=== PATIENT | male | born 1960 | race Caucasian/White ===

== ENCOUNTER → 2017-01-05 | Outpatient (CLI) | payer OTHER | LOC: FIMAGING 12:53 | PROVIDERS: ATTEND Orthopaedic Surgery | DX: Z47.89 Encounter for other orthopedic aftercare (principal); S42.292D Other displaced fracture of upper end of left humerus, subsequent encounter for fracture with routine healing; M19.012 Primary osteoarthritis, left shoulder ==

== ENCOUNTER → 2017-01-26 | Outpatient (CLI) | payer OTHER | LOC: FIMAGING 16:42 | PROVIDERS: ATTEND Family Medicine | DX: M25.512 Pain in left shoulder (principal) ==

== ENCOUNTER 2017-02-21 10:49 | Inpatient (IN) | payer OTHER ==
[2017-02-21] MEDS ORDERED: ceFAZolin 2 GM/DEXTROSE 100 ML IV ONE (11:06)
[2017-02-21] MEDS ORDERED: LIDOCAINE 1% 2 ML INJ ID PRN (11:07)
[2017-02-21] MEDS ORDERED: LR 1,000 ML IV ONE (11:07)
[2017-02-21] MEDS ORDERED: BUPIVACAINE/EPI 0.5% 30 ML SDV ONE (12:27)
[2017-02-21] MEDS ORDERED: POLYMYXIN B SULFATE 500,000 UNIT/10 ML SYR IRR ONE (12:28)
[2017-02-21] MEDS ORDERED: BACITRACIN 50,000 UNITS/10 ML SYR IRR ONE (12:28)
[2017-02-21] MEDS ORDERED: MIDAZOLAM 2 MG/2 ML VIAL IVP ONE (12:44)
--- NOTE | 2017-02-21 12:44 | PDANEPAE ---
ANE History of Present Illness 57 year old male for removal of hardware from left shoulder. ANE Past Medical History - Cardiovascular History Hx Hypertension: No Hx Arrhythmias: No Hx Chest Pain: No Hx Coronary Artery / Peripheral Vascular Disease: No Hx CHF / Valvular Disease: No Hx Palpitations: No - Pulmonary History Hx COPD: No Hx Asthma/Reactive Airway Disease: No Hx Recent Upper Respiratory Infection: No Hx Oxygen in Use at Home: No Hx Sleep Apnea: No - Neurologic History Hx Cerebrovascular Accident: No Hx Seizures: No Hx Dementia: No - Endocrine History Hx Diabetes: No Hypothyroid: No Hyperthyroid: No Obesity: moderate - Renal History Hx Renal Disorders: No - Liver History Hx Hepatic Disorders: No - Neurological & Psychiatric Hx Hx Neurological and Psychiatric Disorders: No - Cancer History Hx Cancer: No - Congenital Disorder History Hx Congenital Disorders: No - Other Health History Other Health History: BRUISE EASILY - Chronic Pain History Chronic Pain: No - Surgical History Prior Surgeries: LEFT shoulder ANE Review of Systems Review of systems is: negative Review of Systems: - Exercise capacity Exercise capacity: >=4 METS METS (RN): 4 METS ANE Patient History - Allergies Allergies/Adverse Reactions: ampicillin Allergy (Verified 02/08/17 09:24) Rash Penicillins Allergy (Verified 02/08/17 09:24) Rash - Home Medications Home medications: home medication list seen and reviewed Home Medications: NK [No Known Home Meds] 02/08/17 [Last Taken Unknown] - NPO status NPO Status: no food or drink >8 hours NPO Since - Liquids (Date): 02/20/17 NPO Since - Liquids (Time): 23:55 NPO Since - Solids (Date): 02/20/17 NPO Since - Solids (Time): 22:00 - Anes Hx Anes Hx: no prior problems - Smoking Hx Smoking Status: Current every day smoker Marijuana use: No - Alcohol Use Alcohol Use: Occasionally - Family Anes Hx Family Anes Hx: neg - N/A Family Hx Anesthesia Complications: none ANE Labs/Vital Signs - Vital Signs Vital Signs: reviewed preoperatively; see RN documention for details Blood Pressure: 145/89 Heart Rate: 55 Respiratory Rate: 16 O2 Sat (%): 97 Height: 187.96 cm Weight: 127.006 kg ANE Physical Exam - Airway Neck exam: FROM Mallampati Score: Class 2 Mouth exam: poor dentition, qureshi - Pulmonary Pulmonary: no respiratory distress - Cardiovascular Cardiovascular: regular rate and rhythym - ASA Status ASA Status: I ANE Anesthesia Plan Anesthesia Plan: general endotracheal anesthesia Regional Anesthesia: supraclavicular BP NB Total IV Anesthesia: No
[2017-02-21] MEDS ORDERED: fentaNYL 100 MCG/2 ML INJ ONE ×2 (12:54→13:47)
[2017-02-21] MEDS ORDERED: ROCURONIUM 50 MG/5 ML VIAL ONE ×3 (12:54→13:34)
[2017-02-21] MEDS ORDERED: PROPOFOL 200 MG/20 ML VIAL ONE ×2 (12:54→13:16)
[2017-02-21] MEDS ORDERED: LIDOCAINE 2% 5 ML SDV ONE (12:54)
[2017-02-21] MEDS ORDERED: ONDANSETRON 4 MG/2 ML VIAL ONE (13:42)
[2017-02-21] MEDS ORDERED: DEXAMETHASONE 4 MG/ML VIAL ONE (13:42)
[2017-02-21] MEDS ORDERED: LR 500 ML IV PRN (14:19)
[2017-02-21] MEDS ORDERED: OXYCODONE/APAP 5/325 TAB PO PRN (14:19)
[2017-02-21] MEDS ORDERED: NALOXONE HCL 0.4 MG/ML INJ IVP PRN (14:19)
[2017-02-21] MEDS ORDERED: ONDANSETRON 4 MG/2 ML VIAL IVP PRN ×2 (14:19→17:44)
[2017-02-21] MEDS ORDERED: fentaNYL 100 MCG/2 ML INJ IVP PRN (14:19)
[2017-02-21] MEDS ORDERED: epHEDrine SULFATE 10 MG/ML SYR ONE (14:26)
[2017-02-21] MEDS ORDERED: PHENYLEPHRINE HCL 100 MCG/ML SYR ONE ×2 (14:26→17:02)
[2017-02-21] MEDS ORDERED: HYDROGEN PEROXIDE 236 ML BOTTLE TP ONE ×2 (14:50→14:53)
[2017-02-21] MEDS ORDERED: HYDROmorphONE/DILAUDID 2 MG/ML INJ ONE (16:31)
[2017-02-21] MEDS ORDERED: SUGAMMADEX SODIUM 200 MG/2 ML VIAL IVP ONE ×2 (16:39→17:04)
[2017-02-21] MEDS ORDERED: ONDANSETRON DISINTEGRATING 4 MG TAB PO PRN (17:44)
[2017-02-21] MEDS ORDERED: TEMAZEPAM 15 MG CAP PO PRN (17:44)
[2017-02-21] MEDS ORDERED: HYDROmorphONE/DILAUDID 2 MG/ML INJ IVP PRN (17:44)
--- NOTE | 2017-02-21 17:44 | POSTOPPROG ---
Post Op Note Date of Operation: 02/21/17 Surgeon: Shiraz Valero Hosiery Pairer: Kayla Reno PA-C Anesthesiologist: Dr. Don Anesthesia: GET(General Endotracheal) Pre-op Diagnosis: L proximal humerus fracture nonunion Post-op Diagnosis: L proximal humerus fracture nonunion Procedure: L proximal humerus hardware removal, hemiarthroplasty and RCR Findings: See full dictation Inf/Abcess present in the surg proc area at time of surgery?: No Depth: Organ Space EBL: 100-500
[2017-02-21] MEDS ORDERED: NS 1,000 ML IV SCH (17:45)
[2017-02-21] MEDS ORDERED: POLYETHYLENE GLYCOL 3350 17 GM PKT PO PRN (17:49)
[2017-02-21] MEDS ORDERED: BISACODYL 10 MG SUPP PR PRN (17:49)
[2017-02-21] MEDS ORDERED: MAGNESIUM HYDROXIDE 30 ML UDCUP PO PRN (17:49)
[2017-02-21] MEDS ORDERED: LACTULOSE 20 GM/30 ML UDCUP PO PRN (17:49)
--- NOTE | 2017-02-21 17:54 | SOAPPROG ---
SOAP Progress Note Assessment/Plan: Assessment/Plan: s/p hardware removal L proximal humerus with hemiarthroplasty and RCR POD#0 - Pt to remain in his sling - NWB LUE - Polar care on L shoulder - PT/OT - SCDs/TEDs for mechanical prophylaxis - Aspirin 325mg 1 tab PO BID x 21 days - Elbow, wrist, and hand ROM okay - Light shoulder pendulums okay - Pain management, encourage PO 02/21/17 17:51 Objective: Vital Signs Temp Pulse Resp BP Pulse Ox 36.7 C 55 L 16 145/89 H 97 02/21/17 13:09 02/21/17 13:09 02/21/17 13:09 02/21/17 13:09 02/21/17 13:09 ICD10 Worksheet Patient Problems: Problems Problem Status Onset 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
--- NOTE | 2017-02-21 18:16 | POSTANESTH ---
Post Anesthetic Evaluation Cardiovascular Status: Normal, Stable, Similar to Pre-Op Cond Respiratory Status: Normal, Stable, Similar to Pre-op Cond. Level of Consciousness/Mental Status: Can Participate in Eval, Alert and Oriented Pain Control: Adequate, Prn Tx Ordered Nausea/Vomiting Control: Adequate, Prn Tx Ordered Complications Possibly Related to Anesthesia: None Noted
[2017-02-21] MEDS ORDERED: OXYCODONE/APAP 5/325 TAB ONE (18:17)
[2017-02-21] MEDS ORDERED: HYDROmorphONE/DILAUDID 1 MG/ML SYR ONE (18:17)
[2017-02-21] MEDS: HYDROmorphONE/DILAUDID 1 MG/ML SYR IVP PRN ×2 (18:18→18:41)
[2017-02-21] MEDS: oxyCODONE IR 5 MG TAB PO PRN (19:52)
[2017-02-21] MEDS: SENNOSIDES/DOCUSATE SODIUM TAB PO SCH (19:52)
--- NOTE | 2017-02-21 20:53 | GOP ---
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 ANESTHESIA: General with Dr. Don. PREOPERATIVE DIAGNOSIS: 1. Left shoulder failed ORIF (open reduction and internal fixation) with retained and protruding, intra-articular hardware. 2. 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 3. Left shoulder contracture, possible rotator cuff tear and biceps tendon pathology. POSTOPERATIVE DIAGNOSIS: 1. Left shoulder failed ORIF (open reduction and internal fixation) with retained and protruding, intra-articular hardware. 2. 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 3. Left shoulder contracture. 4. Left shoulder rotator cuff tear. 5. Left shoulder long head of biceps rupture. PROCEDURE PERFORMED: 1. Left shoulder revision of hardware to hemiarthroplasty. 2. Left shoulder removal of proximal humerus fracture-plate and screws. 3. Left shoulder open rotator cuff repair. 4. Left shoulder proximal biceps stump tenotomy. 5. Left shoulder extensive lysis of adhesions, scar excision and glenoid labrum debridement. FINDINGS: A failed proximal humerus ORIF with proximal humeral plate, prominent screws. There were multiple areas of nonunion. There was complete humeral head collapse with osteonecrosis. The biceps tendon, distal to the superior groove aperture, was scarred in and appeared to have been previously ruptured or released. There was a biceps (approximately 3cm) stump found within the joint. There were severe adhesions and posttraumatic contracture, throughout the glenohumeral joint and capsule, as well as the sub-acromial and sub-deltoid spaces, including scar essentially enveloping the glenoid chondral surface. Preoperative internal rotation to the hip, and external rotation to approximately minus 10 degrees. Forward elevation of approximately 50 degrees with crepitation. The proximal humeral metaphysis was notable for extensive scarring and soft tissue replacement of metaphyseal bone. The anterior aspect of the rotator cuff was torn and degenerative, consistent with tearing due to prominent hardware. The proximal humerus lesser and greater tuberosities were deformed, though overall healed. There was extensive scar in the plane of dissection including what apparently was a division and repair of the pectoralis tendon. There were additional multiple sutures, consistent with a #5 type suture used for prior surgery. The glenoid was covered by a dense layer of adhesions and there was no obvious apparent labrum. There was severe synovitis in the shoulder. SPECIMENS: Swab and tissue cultures were sent for culture and sensitivity during initial approach and after the proximal humeral plate was removed. Please note that the membrane inferior to the plate and over the proximal humerus cortex was sent for this culture after being debrided. ESTIMATED BLOOD LOSS: 100 cc. INDICATIONS: This is a 57-year-old active male who presented to [facility] with obvious failed ORIF greater than 1 year prior. He had severe shoulder contracture as well as posttraumatic arthrosis due to prominent screw tips. Due to severe pain, shoulder contracture and severe disability surgery was recommended. The risks, benefits, and alternatives were described to the patient. All of his questions were answered prior to surgery. Please see history and physical for additional information. DESCRIPTION OF PROCEDURE: The patient was identified in the preoperative holding area and his left shoulder was signed and designated as the operative site. He was treated with 2 g IV prophylactic cefazolin per protocol. He was taken back to the operating room and confirmed on the way to be in bilateral lower extremity SIN hose and SCDs. He was intubated on the OR table in the supine position. He was then converted to a beach-chair position. Great care was taken to position his neck and head in a well-padded head positioning device with the neck in neutral position. The right upper extremity was padded around the forearm, wrist and elbow with foam eggcrate padding. There were pillows placed behind both knees as well as foam eggcrate padding placed around both heels. The left upper extremity was prepped and draped in the usual sterile manner. The prior deltopectoral scar was used for incision. This incision was approximately 12 cm in length. Careful dissection was taken down through the subcutaneous fat. Please note, that the skin was anesthetized with 0.25% Marcaine with epinephrine prior to incision. Meticulous hemostasis was maintained with the Bovie cautery device. The prior scar bed and/or scar plane was used to dissect down through the deltopectoral interval. All dissection was kept lateral to the conjoined tendon and coracoid tip. Extensive scar was encountered and therefore dissection was very difficult for the approach. Proximal humeral bony anatomy was greatly distorted due to prior fracture, malunion and post-traumatic arthrosis, including a component of proximal humerus osteonecrosis. Once the deformed lesser tuberosity was identified, the biceps groove was then palpated more laterally. From the groove, the rotator interval was entered and opened, using a curved Adam scissors, extending up toward the coracoid base. The proximal biceps stump was incised at its origin site at the supraglenoid tubercle and removed from the wound. Great care was taken to protect the subscapularis and supraspinatus tendons. Additional dissection was then carried down distally along the proximal humerus. There was again dense scar and sutures encountered. These sutures were released and the prior pectoralis split was utilized in order to increase overall external rotation via a 1cm incision. Subperiosteal dissection was necessary along the inferior humeral neck in order to achieve appropriate external rotation to expose and eventually dislocate the shoulder. Once the lesser tuberosity and subscap were appropriately exposed, the lesser tuberosity osteotomy was performed. Two heavy sutures were placed through the osteotomized bone flake and used to retract the tendon medially. Once this was achieved, the anterior aspect of the humerus was further identified and humeral head articular surface was begun to be accessed. With a deltoid retractor placed proximally and after extensive lysis of adhesions, the area over the rotator cuff and subacromial space was eventually achieved. The arm was then taken into internal rotation. The proximal humeral plate was identified. Additional dissection was taken down over the plate with the Bovie cautery device and all adhesions were divided and elevated to achieve necessary exposure of the hardware. All scews were backed out of the plate, and the plate was removed in its entirety. Two additional anterior to posterior screws that appeared have been used for repair of the lesser tuberosity were also removed through the LT osteotomy site. A total of 15 screws were removed, 13 screws were removed from the plate and 2 additional screws that were outside the plate anterior to posterior. Once all hardware was confirmed to be removed, additional intraarticular debridement was performed. Using the Bovie cautery device, meticulous debridement was performed in order to divide all adhesions. This then achieved appropriate exposure of the deformed and collapsed humeral head. Once this was achieved, the Foodini cutting block was used to place the humeral head cut at the appropriate level, i.e. superior to inferior with 30 degrees of anteversion using their standard extramedullary guide. A relatively reasonable wafer of bone was removed from the inferior aspect of the humeral head; however, the proximal aspect was completely collapsed and there was only soft tissue in this area. The humeral head wafer was removed. The metaphyseal portion of the proximal humeral cut was then identified and inspected and there was a central cavitary area of extensive adhesions and scar. Debridement was then performed throughout this region as well as down into the humeral shaft. All the scar was resected with a curette, rongeur, and pituitary rongeur. Once this was achieved, the remaining underlying bone was sclerotic. This was carefully debrided and bleeding bed was stimulated throughout. The rotator cuff was found to be relatively intact at the greater tuberosity though the greater tuberosity was relatively impressive in the degree of deformity. There were multiple bone spurs which were carefully resected back with an osteotome and rongeur just inferior and medial to the rotator cuff insertion at the greater tuberosity. The more anterior portion of the rotator cuff was clearly avulsed from the greater tuberosity. Tagging sutures were placed in this area for eventual repair after the hemiarthroplasty. Once the proximal humerus and humeral shaft were appropriately prepared with extensive debridement and removal of all of the adhesions, reaming was performed. The standard starter reamer was used to begin. Next the shaft reaming was continued up to a total diameter of size 9. Due to the proximal humeral deformity and bony malunion and/or healing abnormalities, the broaches were then used, but I was only able to broach up to a maximum size of 6. The size 7 broach was not able to be inserted without risk of fracturing the proximal humerus, due to sclerotic bone and deformity of the metaphysis, internally. With the [address], trialing was performed. A 46 x 21 mm humeral head was found to be of the appropriate size for coverage. This standard humeral head was then used utilized and with a relatively centered stem, this was found to reconstruct the proximal humerus very nicely. As a result, the trial components and broach were removed. Given the very good fit of the size 6 broach, size 6 stem was then readied on the back table. I was prepared to cement the stem into place if I did not achieve a good fit and purchase with the proximal porous coated surface of the humeral stem. The formal stem was then malleted down into position with 30 degrees of anteversion and an excellent fit was achieved, with very good bony capture. I could not dislodge or move the stem whatsoever after it was malleted in to position. Due to the proximal humeral bone void, i.e. metaphyseal bone void around the neck of the stem, I did use an area of standard PMMA cement in order to cement around the proximal aspect of the stem only. This achieved improved fixation proximally at the metaphysis where the malunion and deformity left a large bone void. The stem was then again grasped with the stem insertion tool and then attempted to be removed by scott tugging and the stem was found to be very stable. The trial was again performed with the 46 x 21 mm head and was found to be a very nice reconstruction with appropriate coverage and stability. Range of motion testing was confirmed to have forward elevation to at least 130 degrees with reapproximation of the lesser tuberosity osteotomy. The patient was able to achieve approximately 40 degrees of external rotation and internal rotation to at least the SI joint. On the back table the formal humeral head was then ready for implantation. The trial was removed. The head was malleted into position. Please note that prior to placing the humeral head drill holes were placed in the proximal humerus for passage of #2 FiberWire sutures for repair of the superior aspect of the rotator cuff tear as well as the lesser tuberosity osteotomy. The humeral head was malleted into position with excellent Quiñones taper engagement. This was again tugged and attempted to be removed and found to be very well fixated and fit to the proximal aspect of the stem. The proximal humerus was then reduced and the rotator cuff repair was performed. Using bone tunnels, the avulsed, anterior aspect of the supraspinatus tendon was captured with multiple horizontal mattress #2 FiberWire sutures. Underlying bone was rasped to achieve a bleeding bony bed. Sutures were passed through bone tunnels at the anterior aspect of the greater tuberosity and areas of bone deformity of the proximal humerus from the prior fracture. These were then tied over a bone bridge and the tendon was well approximated down to the anterior greater tuberosity. The lesser tuberosity osteotomy was then repaired with 4 pairs of #2 FiberWire sutures placed in a double row type repair, both medial and lateral to the osteotomy site and then tied over the top. Excellent repair was achieved at the lesser tuberosity. The pec major superior 1 cm split was also repaired as it was previously with multiple #2 Ethibond sutures. The rotator interval was then closed with interrupted #2 FiberWire sutures. Range of motion was again confirmed to be unchanged from prior testing and excellent stability was confirmed at the glenohumeral joint. Please note that prior to closing the wound and/or the lesser tuberosity, the joint was copiously irrigated with bacitracin-laden saline. The superficial wound was additionally irrigated with bacitracin and saline. The deep fat space was closed with multiple 0 Vicryl sutures. 2-0 Vicryl was used to reapproximate and close the deep dermal layer, 3-0 nylon horizontal mattress interrupted sutures were used to close the skin. Sterile postoperative surgical dressings were applied. The left upper extremity was placed in a shoulder immobilizer. The anesthesia service took over to wake the patient up after he was returned to the supine position. TOURNIQUET TIME: None. DRAINS: None. IMPLANTS: Biomet comprehensive shoulder system: mini-humeral stem, size 6 with 83 mm length. This was proximally porous coated with plasma, placed in essentially an uncemented manner with only a cemented collar. A 46 x 21 mm standard head was placed. COMPLICATIONS: None. DISPOSITION: The patient was extubated and transferred to the PACU in stable condition. /[id number]/MODL MTDD
[2017-02-21] MEDS: ceFAZolin 2 GM/DEXTROSE 100 ML IV SCH (21:22)
[2017-02-22] MEDS: oxyCODONE IR 5 MG TAB PO PRN ×4 (00:07→13:55)
[2017-02-22] MEDS: ceFAZolin 2 GM/DEXTROSE 100 ML IV SCH (05:32)
--- NOTE | 2017-02-22 07:57 | SOAPPROG ---
MARIAN Progress Note Assessment/Plan: Assessment: status post left proximal humerus hardware removal, hemiarthroplasty and rotator cuff repair Plan: NWB LUE in sling Ice/elevation Pain medicine as needed PT/OT Left shoulder: pendulum exercises only Aspirin 325mg BID x 21 days SIN's/SCD's Ortho Stable D/C planning for later today if patient does well in PT Subjective: 57 y.o. that is POD#1 left proximal humerus hardware removal and hemiarthroplasty of left shoulder and rotator cuff repair. Patient is in a sling and states his pain is controlled. Overall patient is stable. Objective: Vital Signs Temp Pulse Resp BP Pulse Ox 36.9 C 63 20 106/65 96 02/22/17 07:50 02/22/17 07:50 02/22/17 07:50 02/22/17 07:50 02/22/17 07:50 Microbiology 02/21/17 14:38 Gram Stain - Final Shoulder - Tissue 02/21/17 14:27 Gram Stain - Final Shoulder - Tissue 02/21/17 14:11 Gram Stain - Final Shoulder - Eswab 02/21/17 02/22/17 02/23/17 05:59 05:59 05:59 Intake Total 2620 Output Total 1550 Balance 1070 Physical exam of the LUE: sling is in place. Dressings intact. Normal sensation to light touch in the LUE. Distal pulse present in the LUE. 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
[2017-02-22] MEDS ORDERED: ASPIRIN 325 MG TAB PO SCH (09:00)
[2017-02-22] MEDS: SENNOSIDES/DOCUSATE SODIUM TAB PO SCH (09:21)
[2017-02-22] MEDS: ACETAMINOPHEN 325 MG TAB PO PRN ×2 (09:40→13:55)
[2017-02-22 11:20] VITALS: BP 109/69; PULSE 54; RESP 16; TEMP 99; O2SAT 91
--- NOTE | 2017-02-27 10:33 | PDDCSUM ---
Discharge Summary Discharge Summary: 57y/o M was admitted to undergo R shoulder surgery for decreased ROM and weakness s/p ORIF proximal humerus fracture 07/2014. Pt underwent R shoulder hardware removal proximal humerus, hemiarthroplasty and RCR without complication. Patient received one dose of antibiotics prior to surgery and an additional 24 hours of antibiotic prophylaxis post-operatively. Pain was well controlled and he was evaluated by PT/OT. SCDs/TEDs for mechanical prophylaxis , and Aspirin 325mg, 1 PO BID x 21 days post-operatively for VTE chemoprophylaxis. Pt is NWB RUE. Light pendulums of the R shoulder are okay, as well as elbow, wrist and hand ROM. Sling on the RUE. Pt was discharged home is good condition and will follow-up 10-14 days post-operatively with Dr. Valero.
== END 2017-02-22 15:25 | disposition home or self-care (01) | DRG 483 ==
LOC: F3N 10:49
PROVIDERS: ADMIT Orthopaedic Surgery; ATTEND Orthopaedic Surgery
PROC: 0RBK0ZZ Excision of Left Shoulder Joint, Open Approach (ICD-10-PCS; principal; 2017-02-21 13:30)
PROC: 0PPD04Z Removal of Internal Fixation Device from Left Humeral Head, Open Approach (ICD-10-PCS; principal; 2017-02-21 13:30)
PROC: 0LQ20ZZ Repair Left Shoulder Tendon, Open Approach (ICD-10-PCS; principal; 2017-02-21 13:30)
PROC: 0RRK0JZ Replacement of Left Shoulder Joint with Synthetic Substitute, Open Approach (ICD-10-PCS; principal; 2017-02-21 13:30)
DX: S42.202P Unspecified fracture of upper end of left humerus, subsequent encounter for fracture with malunion (principal); T84.191A Other mechanical complication of internal fixation device of left humerus, initial encounter; M87.222 Osteonecrosis due to previous trauma, left humerus; M19.012 Primary osteoarthritis, left shoulder; M62.412 Contracture of muscle, left shoulder; S46.012D Strain of muscle(s) and tendon(s) of the rotator cuff of left shoulder, subsequent encounter; M66.812 Spontaneous rupture of other tendons, left shoulder; M75.02 Adhesive capsulitis of left shoulder
CPT/HCPCS: 97161-GP; 97165-GO; C1713; J0690; J1100; J1170; J2250; J2370; J2405; J2704; J3010

== ENCOUNTER 2017-11-18 06:28 | Emergency (ER) | payer OTHER ==
--- NOTE | 2017-11-18 06:53 | EDPHY ---
H & P Stated Complaint: Poss clindamycin reaction, generalized rash, itchy Time Seen by Provider: 11/18/17 06:44 - Personal History Current Tetanus Diphtheria and Acellular Pertussis (TDAP): Yes - Medical/Surgical History Hx Asthma: No Hx Chronic Respiratory Disease: No Hx Diabetes: No Hx Cardiac Disease: No Hx Renal Disease: No Hx Cirrhosis: No Hx Alcoholism: No Hx HIV/AIDS: No Hx Splenectomy or Spleen Trauma: No Other PMH: humerus orif - Social History Smoking Status: Current every day smoker Constitutional: Initial Vital Signs Temperature (C) 36.5 C 11/18/17 06:31 Heart Rate 75 11/18/17 06:31 Respiratory Rate 20 11/18/17 06:31 Blood Pressure 145/74 H 11/18/17 06:31 O2 Sat (%) 95 11/18/17 06:31 O2 Delivery Mode Room Air Allergies/Adverse Reactions: ampicillin Allergy (Verified 11/18/17 06:29) Rash Penicillins Allergy (Verified 11/18/17 06:29) Rash Home Medications: Medication Instructions Recorded Acetaminophen [Tylenol 325mg (*)] 325 - 650 mg PO Q4HRS PRN tab 02/22/17 Aspirin [Aspirin 325 mg (*)] 325 mg PO BID tab 02/22/17 oxyCODONE HCL/ACETAMINOPHEN 1 - 2 each PO Q4-6PRN PRN #40 02/22/17 [Percocet 5-325 mg Tablet] methylPREDNISolone [Medrol Dose 1 each PO AD #1 ea 11/18/17 Pratik] Medical Decision Making ED Course/Re-evaluation: CHIEF COMPLAINT: Allergic reaction HISTORY OF PRESENT ILLNESS: 57-year-old healthy gentleman was on clindamycin for 2 weeks prior to a tooth extraction. At basically the 2 week point he developed a rash which was red and itchy and fairly diffuse. It started on his chest and back and then had a subsequently moved all over his body. That rash developed about 6 days ago. He is still having the rash. He has bloodshot eyes. He denies any difficulty with sloughing mucosa or skin. He denies any bleeding in his mouth when he brushes his teeth. Denies any fevers or chills. Denies any difficulty breathing. Denies any perioral or oral pharyngeal swelling. REVIEW OF SYSTEMS: A 10 point review of systems was performed and is negative with the exception of the elements mentioned in the history of present illness. PHYSICAL EXAM: HR, BP, O2 Sat, RR. Temp noted General Appearance: Alert, well hydrated, appropriate, and non-toxic appearing. Head: Atraumatic without scalp tenderness or obvious injury Eyes: Pupils equal, round, reactive to light and accommodation, EOMI, no trauma , injected conjunctiva however his believes his sclera is slightly yellow. Ears: Clear bilaterally, no perforation, normal landmarks Nose: Atraumatic, no rhinorrhea, clear. Throat: There is no erythema or exudates, no lesions, normal tonsils, mucus membranes moist. Neck: Supple, nontender, no lymphadenopathy. Respiratory: No retractions, no distress, no wheezes, and no accessory muscle use. Lungs are clear to auscultation bilaterally. Cardiovascular: Regular rate and rhythm, no murmurs, rubs, or gallops. Good capillary refill all extremities. Gastrointestinal: Abdomen is soft, nontender, non-distended, no masses, no rebound, no guarding, no peritoneal signs. Musculoskeletal: Normal active ROM of all extremities, atraumatic. Neurological: Alert, appropriate, and interactive. Nonfocal neuro. Skin: Macular papular type rash on a majority of his body mainly on truncal distribution. No petechiae. No purpura. No oral pharyngeal mucosal sloughing. No skin sloughing. No rashes, good turgor, no nodules on palpation. Past medical history: Arthritis Past surgical history: Left shoulder replacement Family history: Noncontributory Social history: , employed, does not abuse tobacco drugs or alcohol DIAGNOSTICS/PROCEDURES/CRITICAL CARE TIME: Not indicated DIFFERENTIAL DIAGNOSIS: The differential diagnosis included but was not limited to angioedema, anaphylaxis, anaphylactoid reaction, urticarial reaction , and other infectious causes for skin rash. MEDICAL DECISION MAKING: This patient is having what is most likely a type 4 hypersensitivity reaction to clindamycin. He started the reaction after 2 weeks of exposure to the drug in the reaction has been present for at least 5 or 6 days now. There is no evidence of Huber Clayton syndrome. There is no evidence of respiratory distress or wheezing. There is no evidence of anaphylaxis or anaphylactoid reaction. If indeed his sclera are icteric I have a concern for a hepatic reaction from the clindamycin. Laboratory studies are pending. 0750: Patient's labs are normal. This patient is allergic to Clindamycin, but he is not having a hepatic reaction at this time. 0752: Reassessed patient and discussed normal laboratory findings and clindamycin allergy. He is feeling better after 10mg IV Decadron and 1L IV NS. I have prescribed him a Medrol Dose Pratik and advised him to follow up with his primary care provider. Return precautions provided; patient is comfortable with this plan. - Data Points Laboratory Results: Laboratory Results 11/18/17 07:15 11/18/17 07:15 11/18/17 11/18/17 07:15 07:15 WBC 8.69 10^3/uL 10^3/uL (3.80-9.50) RBC 5.09 10^6/uL 10^6/uL (4.40-6.38) Hgb 16.1 g/dL g/dL (13.7-17.5) Hct 46.0 % % (40.0-51.0) MCV 90.4 fL fL (81.5-99.8) MCH 31.6 pg pg (27.9-34.1) MCHC 35.0 g/dL g/dL (32.4-36.7) RDW 11.9 % % (11.5-15.2) Plt Count 203 10^3/uL 10^3/uL (150-400) MPV 10.0 fL fL (8.7-11.7) Neut % (Auto) 64.7 % % (39.3-74.2) Lymph % (Auto) 30.5 % % (15.0-45.0) [place] % (Auto) 3.6 % L % (4.5-13.0) Eos % (Auto) 0.9 % % (0.6-7.6) Baso % (Auto) 0.1 % L % (0.3-1.7) Nucleat RBC Rel Count 0.0 % % (0.0-0.2) Absolute Neuts (auto) 5.62 10^3/uL 10^3/uL (1.70-6.50) Absolute Lymphs (auto) 2.65 10^3/uL 10^3/uL (1.00-3.00) Absolute Monos (auto) 0.31 10^3/uL 10^3/uL (0.30-0.80) Absolute Eos (auto) 0.08 10^3/uL 10^3/uL (0.03-0.40) Absolute Basos (auto) 0.01 10^3/uL L 10^3/uL (0.02-0.10) Absolute Nucleated RBC 0.00 10^3/uL 10^3/uL (0-0.01) Immature Gran % 0.2 % % (0.0-1.1) Immature Gran # 0.02 10^3/uL 10^3/uL (0.00-0.10) Sodium 141 mEq/L mEq/L (135-145) Potassium 4.2 mEq/L mEq/L (3.3-5.0) Chloride 106 mEq/L mEq/L (97-110) Carbon Dioxide 26 mEq/l mEq/l (22-31) Anion Gap 9 mEq/L mEq/L (8-16) BUN 13 mg/dL mg/dL (7-23) Creatinine 1.0 mg/dL mg/dL (0.7-1.3) Estimated GFR > 60 Glucose 93 mg/dL mg/dL (70-100) Calcium 8.3 mg/dL L mg/dL (8.5-10.4) Total Bilirubin 1.2 mg/dL mg/dL (0.1-1.4) Conjugated Bilirubin 0.5 mg/dL mg/dL (0.0-0.5) Unconjugated Bilirubin 0.7 mg/dL mg/dL (0.0-1.1) AST 26 IU/L IU/L (17-59) ALT 37 IU/L IU/L (21-72) Alkaline Phosphatase 45 IU/L IU/L (38-126) Total Protein 6.4 g/dL g/dL (6.3-8.2) Albumin 3.6 g/dL g/dL (3.5-5.0) Lipase 89 IU/L IU/L (23-300) Medications Given: Discontinued Medications Dexamethasone (Decadron Injection) 10 mg IVP EDNOW ONE Stop: 11/18/17 07:12 Last Admin: 11/18/17 07:16 Dose: 10 mg Sodium Chloride (Ns) 1,000 mls @ 0 mls/hr IV EDNOW ONE; Wide Open PRN Reason: Protocol Stop: 11/18/17 07:05 Last Admin: 11/18/17 07:15 Dose: 1,000 mls Point of Care Test Results: Urine Dip Collection Date 11/18/17 Collection Time 07:50 Specific [place] (1.002-1.030) 1.010 PH (5.0-7.5) 6.0 Leukocytes (Negative) Negative Nitrites (Negative) Positive Protein (Negative) Trace Glucose (Negative) Negative Ketones (Negative) Negative Urobilnogen (0.2-1.0 EU) 1.0 Blood (Negative) Negative Departure - Departure Disposition: Home, Routine, Self-Care Clinical Impression: Allergic reaction Qualifiers: Encounter type: initial encounter Qualified Code(s): T78.40XA - Allergy, unspecified, initial encounter Condition: Good Instructions: Antibiotic Medication Allergy (ED), Allergies (ED) Additional Instructions: 1. You are allergic to Clindamycin. 2. Take 20mg Pepcid a day. 3. Take Medrol as prescribed. 4. Follow-up with your primary doctor within 72 hours. 5. Return to the Emergency Department for fever, chest pain, shortness of breath , increasing pain or other worsening of condition. Referrals: Phil Godinez MD [Primary Care Provider] - As per Instructions Prescriptions: methylPREDNISolone [Medrol Dose Pratik] 1 each PO AD #1 ea Report Scribed for: Crispin Metcalf Report Scribed by: Thalia Kenyon Date of Report: 11/18/17 Time of Report: 07:52
[2017-11-18] MEDS ORDERED: NS 1,000 ML IV ONE (07:04)
[2017-11-18] MEDS ORDERED: DEXAMETHASONE 10 MG/ML VIAL IVP ONE (07:11)
[2017-11-18 07:28] LABS: PLATELET COUNT 203 10^3/uL (150-400)
[2017-11-18 08:09] VITALS: BP 100/67
== END 2017-11-18 08:07 | disposition home or self-care (01) ==
DX: T78.40XA Allergy, unspecified, initial encounter (principal); F17.200 Nicotine dependence, unspecified, uncomplicated; E86.9 Volume depletion, unspecified; Z79.82 Long term (current) use of aspirin
CPT/HCPCS: 96374; J1100